=== PATIENT | female | born 1955 | race Asian ===

== ENCOUNTER 2017-01-23 08:36 | Day surgery (SDC) | payer OTHER ==
[~2017-01-23] VITALS: Ht 152.4 cm; Wt 35.7 kg
[2017-01-23 08:12] VITALS: BP 107/69; PULSE 93; TEMP 97.8
[~2017-01-23 08:36] MED LIST: 00186-0372-20 IH; BENADRYL25 M2 PO; FERROUS SU325 MG/TAB PO; MOBIC15 MG PO; MULTI VITAMINS1 TAB PO; NORVASC 5MG5 MG/TAB PO; PROAIR HFA0.09 MG/AC IH
[2017-01-23 10:41] VITALS: BP 105/65; PULSE 97; TEMP 97.7
[2017-01-23 11:00] VITALS: BP 108/59; PULSE 105
[2017-01-23 12:05] VITALS: BP 115/76; PULSE 97
== END 2017-01-23 11:45 | disposition home or self-care (01) ==
LOC: SDCO 08:36
DX: J20.9 Acute bronchitis, unspecified (principal); R04.2 Hemoptysis; Z86.11 Personal history of tuberculosis; R93.8 Abnormal findings on diagnostic imaging of other specified body structures; Z68.1 Body mass index [BMI] 19.9 or less, adult; I10 Essential (primary) hypertension; M19.90 Unspecified osteoarthritis, unspecified site
CPT/HCPCS: J2704; J7030